=== PATIENT | male | born 1970 | race Hispanic/Latino ===

== ENCOUNTER 2022-03-16 23:01 | Inpatient (IN) | payer MEDICARE ==
[~2022-03-16] VITALS: Ht 167.6 cm; Wt 110.5 kg
[2022-03-16 23:52] LABS: BASOPHILS % (AUTO) 1.1 % (0.0-5.0); EOSINOPHILS % (AUTO) 0.2 % (0.0-8.0); HEMATOCRIT 43.9 % (42-54); LYMPHOCYTES % (AUTO) 8.4 % (21.0-51.0); MEAN CORPUSCULAR HEMOGLOBIN 32.5 pg (27.0-33.0); MEAN CORPUSCULAR HGB CONC 31.4 g/dL (32.0-36.0); MEAN CORPUSCULAR VOLUME 103.3 fL (79-99); MONOCYTES % (AUTO) 7.3 % (3.0-13.0); NEUTROPHILS % (AUTO) 82.7 % (40.0-77.0); NUCLEATED RED BLOOD CELLS 0.5 % (0.0-0.19); PLATELET COUNT (AUTO) 149 K/uL (130-400); RED BLOOD CELL COUNT(AUTO) 4.25 MIL/uL (4.50-6.20); RED CELL DISTRIBUTION WIDTH 18.4 % (11.0-15.5); WHITE BLOOD COUNT (AUTO) 8.7 K/uL (4.8-10.8)
[2022-03-17] MEDS ORDERED: BENZONATATE 100 MG CAPSULE PO ONE
[2022-03-17 00:26] LABS: ALBUMIN 3.7 g/dL (3.5-5.0); BILIRUBIN,TOTAL 1.2 mg/dL (0.2-1.0); POTASSIUM 5.1 mmol/L (3.5-5.1); TOTAL PROTEIN, SERUM 8.2 g/dL (6.0-8.3)
[2022-03-17] MEDS ORDERED: 0.9% NACL 500ML IV.SOLN 500 ML IV SCH (00:30)
[2022-03-17 00:32] LABS: CREATININE 8.9 mg/dL (0.5-1.5)
[2022-03-17] MEDS ORDERED: VANCOMYCIN 1G VIAL IVPB ONE (01:00)
[2022-03-17] MEDS ORDERED: ONDANSETRON 4MG INJ IV PRN (01:00)
[2022-03-17] MEDS ORDERED: ACETAMINOPHEN 325 MG TAB PO PRN (01:00)
[2022-03-17] MEDS ORDERED: HYDRALAZINE 20MG/ML VIAL IV PRN (01:00)
[2022-03-17] MEDS ORDERED: ONDANSETRON 4MG INJ IVP ONE (01:00)
[2022-03-17] MEDS ORDERED: VANCOMYCIN 1G/250ML KIT 250 ML IV ONE (01:05)
[2022-03-17] MEDS: CEFEPIME HCL 2 GM VIAL IVP SCH (01:13)
[2022-03-17 03:05] VITALS: BP 132/77
[2022-03-17] MEDS ORDERED: LEVO75CA5 PO (03:30)
[2022-03-17] MEDS ORDERED: DULA0.75 SQ (03:30)
[2022-03-17] MEDS ORDERED: ASPI-1197 PO (03:30)
[2022-03-17] MEDS ORDERED: METO-408 PO (03:30)
[2022-03-17] MEDS ORDERED: INSU100V12 SQ (03:30)
[2022-03-17] MEDS ORDERED: CLOP75TA32 PO (03:30)
[2022-03-17] MEDS ORDERED: ATOR20TA65 PO (03:30)
[2022-03-17] MEDS ORDERED: LATA7.5D OU (03:30)
[2022-03-17] MEDS ORDERED: PANT40TA54 PO (03:30)
[2022-03-17] MEDS ORDERED: SEVE800T7 PO (03:30)
[2022-03-17] MEDS ORDERED: LOSA25TA41 PO (03:30)
[2022-03-17] MEDS ORDERED: FERR210T PO (03:30)
[2022-03-17] MEDS ORDERED: TIMO1DRO5 OU (03:30)
[2022-03-17] MEDS ORDERED: BENZ200C53 PO (03:30)
[2022-03-17] MEDS ORDERED: GABA-529 PO (03:30)
[2022-03-17] MEDS: GUAIFENESIN-DM 200/20 MG 10 ML PO PRN ×2 (03:31→20:15)
[2022-03-17] MEDS: ACETAMINOPHEN WITH CODEINE 1 TAB TAB PO PRN ×3 (03:34→20:16)
[2022-03-17 04:14] VITALS: BP 157/53
[2022-03-17 05:43] LABS: EOSINOPHILS % (AUTO) 0.2 % (0.0-8.0); LYMPHOCYTES % (AUTO) 11.9 % (21.0-51.0); MEAN CORPUSCULAR HEMOGLOBIN 31.8 pg (27.0-33.0); MEAN CORPUSCULAR HGB CONC 30.7 g/dL (32.0-36.0); MEAN CORPUSCULAR VOLUME 103.7 fL (79-99); MONOCYTES % (AUTO) 8.7 % (3.0-13.0); NEUTROPHILS % (AUTO) 77.7 % (40.0-77.0); NUCLEATED RED BLOOD CELLS 0.6 % (0.0-0.19); PLATELET COUNT (AUTO) 149 K/uL (130-400); RED BLOOD CELL COUNT(AUTO) 4.34 MIL/uL (4.50-6.20); RED CELL DISTRIBUTION WIDTH 18.3 % (11.0-15.5); WHITE BLOOD COUNT (AUTO) 8.3 K/uL (4.8-10.8)
[2022-03-17 05:49] LABS: POTASSIUM 5.2 mmol/L (3.5-5.1)
[2022-03-17 07:53] VITALS: BP 150/87
[2022-03-17] MEDS: DOXYCYCLINE 100MG+NS 250ML 250 ML IV SCH ×2 (08:36→20:15)
[2022-03-17] MEDS ORDERED: DOXYCYCLINE 100MG+NS 250ML IV SCH (09:00)
[2022-03-17 11:52] VITALS: BP 149/86
[2022-03-17 16:00] VITALS: BP 142/85
[2022-03-17 19:45] VITALS: BP 136/86
[2022-03-17] MEDS ORDERED: 0.9% NACL 250ML 250 ML ONE (19:49)
[2022-03-17] MEDS: BENZONATATE 100 MG CAPSULE PO PRN (20:16)
[2022-03-18] VITALS (21 sets, daily range): BP systolic 140–174; BP diastolic 82–114
[2022-03-18] MEDS: CEFEPIME HCL 2 GM VIAL IVP SCH (01:00)
[2022-03-18 09:21] LABS: BASOPHILS % (AUTO) 1.2 % (0.0-5.0); EOSINOPHILS % (AUTO) 4.1 % (0.0-8.0); HEMATOCRIT 45.6 % (42-54); LYMPHOCYTES % (AUTO) 13.1 % (21.0-51.0); MEAN CORPUSCULAR HEMOGLOBIN 32.7 pg (27.0-33.0); MEAN CORPUSCULAR HGB CONC 30.9 g/dL (32.0-36.0); MEAN CORPUSCULAR VOLUME 105.8 fL (79-99); MONOCYTES % (AUTO) 13.7 % (3.0-13.0); NEUTROPHILS % (AUTO) 66.9 % (40.0-77.0); NUCLEATED RED BLOOD CELLS 2.5 % (0.0-0.19); PLATELET COUNT (AUTO) 156 K/uL (130-400); RED BLOOD CELL COUNT(AUTO) 4.31 MIL/uL (4.50-6.20); RED CELL DISTRIBUTION WIDTH 18.8 % (11.0-15.5); WHITE BLOOD COUNT (AUTO) 6.9 K/uL (4.8-10.8)
[2022-03-18] MEDS: DOXYCYCLINE 100MG+NS 250ML 250 ML IV SCH ×2 (09:37→22:17)
[2022-03-18 11:43] LABS: ALBUMIN 3.3 g/dL (3.5-5.0); BILIRUBIN,TOTAL 1.1 mg/dL (0.2-1.0); CREATININE 10.2 mg/dL (0.5-1.5); MAGNESIUM 2.6 mg/dL (1.80-2.40); POTASSIUM 5.8 mmol/L (3.5-5.1); TOTAL PROTEIN, SERUM 7.6 g/dL (6.0-8.3)
[2022-03-18] MEDS: GUAIFENESIN-DM 200/20 MG 10 ML PO PRN (15:15)
[2022-03-18] MEDS: BENZONATATE 100 MG CAPSULE PO PRN (17:26)
[2022-03-18] MEDS ORDERED: VANCOMYCIN 500MG+NS 100ML 100 ML IV ONE (19:00)
[2022-03-18 21:00] LABS: HEPATITIS B SURFACE ANTIGEN Non-Reactive (Negative)
[2022-03-18] MEDS ORDERED: VANCOMYCIN PROTOCOL PER PHARMACY IV SCH (21:00)
[2022-03-18] MEDS ORDERED: LATANOPROST OU SCH (21:00)
[2022-03-18] MEDS ORDERED: NON-FORMULARY MEDICATION 1 EACH (Benzonatate 200 MG) PO SCH (21:00)
[2022-03-18] MEDS ORDERED: 0.9% NACL 250ML 250 ML ONE (21:14)
[2022-03-18] MEDS: LATANOPROST 2.5 ML DROPS OU SCH (22:17)
[2022-03-18] MEDS: ATORVASTATIN 20 MG TABLET PO SCH (22:18)
[2022-03-18] MEDS: METOPROLOL SUCCINATE 25 MG TAB.SR.24H PO SCH (22:18)
[2022-03-18] MEDS: BENZONATATE 100 MG CAPSULE PO SCH (22:18)
[2022-03-18] MEDS: TIMOLOL MALEATE 0.5% 5 ML BOTTLE OU SCH (22:19)
[2022-03-18] MEDS: INSULIN GLARGINE 100 UNITS/ML 10 ML VIAL SQ SCH (22:27)
[2022-03-18] MEDS: ACETAMINOPHEN WITH CODEINE 1 TAB TAB PO PRN (22:29)
[2022-03-19 02:45] VITALS: BP 116/74
[2022-03-19 05:24] LABS: HEMATOCRIT 45.1 % (42-54); MEAN CORPUSCULAR VOLUME 103.2 fL (79-99); NUCLEATED RED BLOOD CELLS 2.3 % (0.0-0.19); PLATELET COUNT (AUTO) 131 K/uL (130-400); RED BLOOD CELL COUNT(AUTO) 4.37 MIL/uL (4.50-6.20); RED CELL DISTRIBUTION WIDTH 18.6 % (11.0-15.5)
[2022-03-19 05:43] LABS: ALBUMIN 2.9 g/dL (3.5-5.0); MAGNESIUM 2.1 mg/dL (1.80-2.40); PHOSPHORUS 5.9 mg/dL (2.5-4.9); POTASSIUM 4.5 mmol/L (3.5-5.1); TOTAL PROTEIN, SERUM 6.7 g/dL (6.0-8.3)
[2022-03-19 05:53] LABS: CREATININE 8.6 mg/dL (0.5-1.5)
[2022-03-19 06:00] LABS: BASOPHILS % (MANUAL) 1 % (0-2); EOSINOPHILS % (MANUAL) 8 % (1-6); LYMPHOCYTES % (MANUAL) 9 % (22-44); MAN.DIFF COMMENT-IMPRESSION MANUAL DIFFERENTIAL; MONOCYTES % (MANUAL) 8 % (2-9); SEGMENTED NEUTROPHILS % 74 % (40-70)
[2022-03-19 06:01] LABS: PLATELET MORPHOLOGY COMMENT ADEQUATE
[2022-03-19] MEDS: LEVOTHYROXINE 75 MCG TABLET PO SCH (06:29)
[2022-03-19] MEDS ORDERED: VANCOMYCIN 500MG+NS 100ML 100 ML IV ONE (06:55)
[2022-03-19 07:35] VITALS: BP 132/73
[2022-03-19] MEDS ORDERED: SEVELAMER HCL 800 MG TABLET PO SCH (08:00)
[2022-03-19] MEDS ORDERED: GABAPENTIN 100 MG CAPSULE PO SCH (09:00)
[2022-03-19] MEDS ORDERED: NON-FORMULARY MEDICATION 1 EACH (Levothyroxine Sodium (Levothyroxine) 75 MCG) PO SCH (09:00)
[2022-03-19] MEDS ORDERED: 0.9% NACL 250ML 250 ML ONE ×2 (09:22→21:17)
[2022-03-19] MEDS: ASPIRIN 81MG CHEW TAB PO SCH (09:25)
[2022-03-19] MEDS: DOXYCYCLINE 100MG+NS 250ML 250 ML IV SCH ×2 (09:25→22:35)
[2022-03-19] MEDS: CLOPIDOGREL 75MG TAB PO SCH (09:25)
[2022-03-19] MEDS: BENZONATATE 100 MG CAPSULE PO SCH ×3 (09:25→22:35)
[2022-03-19] MEDS: Vitamin B Complex/Vit C/Folic Acid PO SCH (09:25)
[2022-03-19] MEDS: TIMOLOL MALEATE 0.5% 5 ML BOTTLE OU SCH ×2 (09:26→22:37)
[2022-03-19 11:40] VITALS: BP 127/69
[2022-03-19] MEDS: GABAPENTIN 100 MG CAPSULE PO SCH (14:29)
[2022-03-19 14:41] LABS: % IRON SATURATION 40.4 % (30-44)
[2022-03-19] MEDS ORDERED: VANCOMYCIN 1.25 GM/250 ML BAG 250 ML IV SCH (15:00)
[2022-03-19 15:05] VITALS: BP 136/79
[2022-03-19] MEDS: SEVELAMER HCL 800 MG TABLET PO SCH (17:00)
[2022-03-19] MEDS: CEFEPIME HCL 1 GM VIAL IVP SCH (17:53)
[2022-03-19] MEDS ORDERED: PHARMACY COMMUNICATION MISC SCH (19:00)
[2022-03-19] MEDS: FERRIC CITRATE 420 MG PO SCH (19:20)
[2022-03-19 20:00] VITALS: BP 138/87
[2022-03-19] MEDS: METOPROLOL SUCCINATE 25 MG TAB.SR.24H PO SCH (22:35)
[2022-03-19] MEDS: ATORVASTATIN 20 MG TABLET PO SCH (22:35)
[2022-03-19] MEDS: LATANOPROST 2.5 ML DROPS OU SCH (22:37)
[2022-03-19] MEDS: INSULIN GLARGINE 100 UNITS/ML 10 ML VIAL SQ SCH (22:47)
[2022-03-20] VITALS (22 sets, daily range): BP systolic 108–164; BP diastolic 60–97
[2022-03-20 05:37] LABS: BASOPHILS % (AUTO) 1.1 % (0.0-5.0); EOSINOPHILS % (AUTO) 7.2 % (0.0-8.0); LYMPHOCYTES % (AUTO) 13.9 % (21.0-51.0); MEAN CORPUSCULAR HEMOGLOBIN 32.1 pg (27.0-33.0); MEAN CORPUSCULAR HGB CONC 31.1 g/dL (32.0-36.0); MONOCYTES % (AUTO) 11.9 % (3.0-13.0); NEUTROPHILS % (AUTO) 65.2 % (40.0-77.0); NUCLEATED RED BLOOD CELLS 2.1 % (0.0-0.19); PLATELET COUNT (AUTO) 136 K/uL (130-400); RED BLOOD CELL COUNT(AUTO) 4.27 MIL/uL (4.50-6.20); RED CELL DISTRIBUTION WIDTH 18.8 % (11.0-15.5); WHITE BLOOD COUNT (AUTO) 7.1 K/uL (4.8-10.8)
[2022-03-20 05:51] LABS: BILIRUBIN,TOTAL 0.9 mg/dL (0.2-1.0); MAGNESIUM 2.4 mg/dL (1.80-2.40); PHOSPHORUS 5.7 mg/dL (2.5-4.9); POTASSIUM 4.3 mmol/L (3.5-5.1); TOTAL PROTEIN, SERUM 6.9 g/dL (6.0-8.3)
[2022-03-20] MEDS: LEVOTHYROXINE 75 MCG TABLET PO SCH (06:01)
[2022-03-20 06:04] LABS: CREATININE 10.1 mg/dL (0.5-1.5)
[2022-03-20] MEDS: SEVELAMER HCL 800 MG TABLET PO SCH ×3 (08:00→16:46)
[2022-03-20] MEDS: Vitamin B Complex/Vit C/Folic Acid PO SCH (12:43)
[2022-03-20] MEDS: ASPIRIN 81MG CHEW TAB PO SCH (12:44)
[2022-03-20] MEDS: DOXYCYCLINE 100MG+NS 250ML 250 ML IV SCH ×2 (12:44→20:42)
[2022-03-20] MEDS: CLOPIDOGREL 75MG TAB PO SCH (12:44)
[2022-03-20] MEDS: BENZONATATE 100 MG CAPSULE PO SCH ×3 (12:44→20:43)
[2022-03-20] MEDS: TIMOLOL MALEATE 0.5% 5 ML BOTTLE OU SCH ×2 (12:47→20:45)
[2022-03-20] MEDS: FERRIC CITRATE 420 MG PO SCH ×3 (12:47→20:52)
[2022-03-20] MEDS: VANCOMYCIN 1.25 GM/250 ML BAG 250 ML IV SCH (14:36)
[2022-03-20] MEDS: GABAPENTIN 100 MG CAPSULE PO SCH (14:53)
[2022-03-20] MEDS: CEFEPIME HCL 1 GM VIAL IVP SCH (16:46)
[2022-03-20] MEDS ORDERED: 0.9% NACL 250ML 250 ML ONE (20:34)
[2022-03-20] MEDS: ATORVASTATIN 20 MG TABLET PO SCH (20:43)
[2022-03-20] MEDS: METOPROLOL SUCCINATE 25 MG TAB.SR.24H PO SCH (20:43)
[2022-03-20] MEDS: LATANOPROST 2.5 ML DROPS OU SCH (20:45)
[2022-03-20] MEDS: INSULIN GLARGINE 100 UNITS/ML 10 ML VIAL SQ SCH (20:51)
[2022-03-21 05:17] LABS: MEAN CORPUSCULAR HEMOGLOBIN 32.3 pg (27.0-33.0); MEAN CORPUSCULAR HGB CONC 31.9 g/dL (32.0-36.0); MEAN CORPUSCULAR VOLUME 101.2 fL (79-99); NUCLEATED RED BLOOD CELLS 0.9 % (0.0-0.19); PLATELET COUNT (AUTO) 113 K/uL (130-400); RED BLOOD CELL COUNT(AUTO) 4.15 MIL/uL (4.50-6.20); RED CELL DISTRIBUTION WIDTH 18.6 % (11.0-15.5); WHITE BLOOD COUNT (AUTO) 6.7 K/uL (4.8-10.8)
[2022-03-21 05:38] LABS: ALBUMIN 2.8 g/dL (3.5-5.0); BILIRUBIN,TOTAL 0.9 mg/dL (0.2-1.0); MAGNESIUM 2.3 mg/dL (1.80-2.40); PHOSPHORUS 4.8 mg/dL (2.5-4.9); POTASSIUM 3.8 mmol/L (3.5-5.1); TOTAL PROTEIN, SERUM 6.4 g/dL (6.0-8.3)
[2022-03-21 05:45] LABS: CREATININE 9.2 mg/dL (0.5-1.5)
[2022-03-21 05:47] LABS: EOSINOPHILS % (MANUAL) 4 % (1-6); LYMPHOCYTES % (MANUAL) 21 % (22-44); MAN.DIFF COMMENT-IMPRESSION MANUAL DIFFERENTIAL; MONOCYTES % (MANUAL) 12 % (2-9); SEGMENTED NEUTROPHILS % 63 % (40-70)
[2022-03-21 05:48] LABS: PLATELET MORPHOLOGY COMMENT SLIGHTLY DECREASED
[2022-03-21] MEDS: LEVOTHYROXINE 75 MCG TABLET PO SCH (05:48)
[2022-03-21 07:40] VITALS: BP 147/85
[2022-03-21] MEDS: DOXYCYCLINE 100MG+NS 250ML 250 ML IV SCH ×2 (09:36→21:53)
[2022-03-21] MEDS: Vitamin B Complex/Vit C/Folic Acid PO SCH (09:37)
[2022-03-21] MEDS: CLOPIDOGREL 75MG TAB PO SCH (09:37)
[2022-03-21] MEDS: LOSARTAN 25 MG TABLET PO SCH (09:37)
[2022-03-21] MEDS: ASPIRIN 81MG CHEW TAB PO SCH (09:37)
[2022-03-21] MEDS: BENZONATATE 100 MG CAPSULE PO SCH ×3 (09:38→21:54)
[2022-03-21] MEDS: TIMOLOL MALEATE 0.5% 5 ML BOTTLE OU SCH ×2 (09:38→21:54)
[2022-03-21] MEDS: FERRIC CITRATE 420 MG PO SCH ×3 (09:38→21:00)
[2022-03-21] MEDS: SEVELAMER HCL 800 MG TABLET PO SCH ×3 (09:38→17:25)
[2022-03-21 11:40] VITALS: BP 138/83
[2022-03-21] MEDS: GABAPENTIN 100 MG CAPSULE PO SCH (14:33)
[2022-03-21 15:40] VITALS: BP 144/84
[2022-03-21] MEDS: CEFEPIME HCL 1 GM VIAL IVP SCH (17:25)
[2022-03-21 20:00] VITALS: BP 132/73
[2022-03-21] MEDS: INSULIN GLARGINE 100 UNITS/ML 10 ML VIAL SQ SCH (21:00)
[2022-03-21] MEDS ORDERED: 0.9% NACL 250ML 250 ML ONE (21:19)
[2022-03-21] MEDS: ATORVASTATIN 20 MG TABLET PO SCH (21:53)
[2022-03-21] MEDS: METOPROLOL SUCCINATE 25 MG TAB.SR.24H PO SCH (21:54)
[2022-03-21] MEDS: LATANOPROST 2.5 ML DROPS OU SCH (21:54)
[2022-03-22] VITALS (20 sets, daily range): BP systolic 137–172; BP diastolic 78–96
[2022-03-22 05:03] LABS: BASOPHILS % (AUTO) 0.7 % (0.0-5.0); EOSINOPHILS % (AUTO) 5.6 % (0.0-8.0); HEMATOCRIT 44.8 % (42-54); LYMPHOCYTES % (AUTO) 16.2 % (21.0-51.0); MEAN CORPUSCULAR HEMOGLOBIN 31.8 pg (27.0-33.0); MEAN CORPUSCULAR HGB CONC 31.3 g/dL (32.0-36.0); MEAN CORPUSCULAR VOLUME 101.8 fL (79-99); MONOCYTES % (AUTO) 8.8 % (3.0-13.0); NUCLEATED RED BLOOD CELLS 0.7 % (0.0-0.19); PLATELET COUNT (AUTO) 113 K/uL (130-400); RED CELL DISTRIBUTION WIDTH 18.6 % (11.0-15.5); WHITE BLOOD COUNT (AUTO) 8.2 K/uL (4.8-10.8)
[2022-03-22 05:15] LABS: PHOSPHORUS 5.4 mg/dL (2.5-4.9); POTASSIUM 4.4 mmol/L (3.5-5.1)
[2022-03-22] MEDS: LEVOTHYROXINE 75 MCG TABLET PO SCH (06:19)
[2022-03-22 06:32] LABS: CREATININE 10.2 mg/dL (0.5-1.5)
[2022-03-22] MEDS: SEVELAMER HCL 800 MG TABLET PO SCH ×3 (08:00→17:00)
[2022-03-22] MEDS ORDERED: 0.9% NACL 250ML 250 ML ONE (09:06)
[2022-03-22] MEDS: DOXYCYCLINE 100MG+NS 250ML 250 ML IV SCH ×2 (10:38→23:03)
[2022-03-22] MEDS: TIMOLOL MALEATE 0.5% 5 ML BOTTLE OU SCH ×2 (10:39→23:04)
[2022-03-22] MEDS: FERRIC CITRATE 420 MG PO SCH ×3 (10:40→21:00)
[2022-03-22] MEDS: CLOPIDOGREL 75MG TAB PO SCH (10:40)
[2022-03-22] MEDS: BENZONATATE 100 MG CAPSULE PO SCH ×3 (10:40→23:03)
[2022-03-22] MEDS: Vitamin B Complex/Vit C/Folic Acid PO SCH (10:40)
[2022-03-22] MEDS: LOSARTAN 25 MG TABLET PO SCH (10:41)
[2022-03-22] MEDS: ASPIRIN 81MG CHEW TAB PO SCH (10:42)
[2022-03-22] MEDS: GABAPENTIN 100 MG CAPSULE PO SCH (14:48)
[2022-03-22] MEDS: CEFEPIME HCL 1 GM VIAL IVP SCH (17:12)
[2022-03-22] MEDS: VANCOMYCIN 1.25 GM/250 ML BAG 250 ML IV SCH (17:12)
[2022-03-22] MEDS ORDERED: ERGOCALCIFEROL (VITAMIN D2) 50,000 UNIT CAPSULE PO SCH (17:30)
[2022-03-22] MEDS: METOPROLOL SUCCINATE 25 MG TAB.SR.24H PO SCH (23:03)
[2022-03-22] MEDS: ATORVASTATIN 20 MG TABLET PO SCH (23:03)
[2022-03-22] MEDS: LATANOPROST 2.5 ML DROPS OU SCH (23:04)
[2022-03-22] MEDS: INSULIN GLARGINE 100 UNITS/ML 10 ML VIAL SQ SCH (23:19)
[2022-03-22] MEDS: ACETAMINOPHEN WITH CODEINE 1 TAB TAB PO PRN (23:24)
[2022-03-23 00:40] VITALS: BP 156/99
[2022-03-23 04:13] VITALS: BP 116/66
[2022-03-23 04:55] LABS: HEMATOCRIT 42.7 % (42-54); MEAN CORPUSCULAR HEMOGLOBIN 32.2 pg (27.0-33.0); MEAN CORPUSCULAR HGB CONC 31.9 g/dL (32.0-36.0); MEAN CORPUSCULAR VOLUME 100.9 fL (79-99); NUCLEATED RED BLOOD CELLS 0.6 % (0.0-0.19); PLATELET COUNT (AUTO) 92 K/uL (130-400); RED BLOOD CELL COUNT(AUTO) 4.23 MIL/uL (4.50-6.20); RED CELL DISTRIBUTION WIDTH 18.5 % (11.0-15.5); WHITE BLOOD COUNT (AUTO) 7.3 K/uL (4.8-10.8)
[2022-03-23 05:10] LABS: POTASSIUM 4.1 mmol/L (3.5-5.1)
[2022-03-23 05:17] LABS: HEMOGLOBIN A1C 6.5 % (4.0-6.0)
[2022-03-23 05:26] LABS: BASOPHILS % (MANUAL) 2 % (0-2); EOSINOPHILS % (MANUAL) 4 % (1-6); LYMPHOCYTES % (MANUAL) 15 % (22-44); MONOCYTES % (MANUAL) 9 % (2-9); SEGMENTED NEUTROPHILS % 70 % (40-70)
[2022-03-23 05:27] LABS: MAN.DIFF COMMENT-IMPRESSION MANUAL DIFFERENTIAL; PLATELET MORPHOLOGY COMMENT DECREASED
[2022-03-23 05:34] LABS: CREATININE 8.5 mg/dL (0.5-1.5)
[2022-03-23] MEDS: LEVOTHYROXINE 75 MCG TABLET PO SCH (06:27)
[2022-03-23 07:40] VITALS: BP 136/86
[2022-03-23] MEDS: FERRIC CITRATE 420 MG PO SCH ×2 (09:00→20:38)
[2022-03-23] MEDS ORDERED: LOSARTAN 50 MG TABLET PO SCH (09:00)
[2022-03-23] MEDS: SEVELAMER HCL 800 MG TABLET PO SCH ×3 (09:57→17:06)
[2022-03-23] MEDS: DOXYCYCLINE 100MG+NS 250ML 250 ML IV SCH (09:57)
[2022-03-23] MEDS: Vitamin B Complex/Vit C/Folic Acid PO SCH (09:57)
[2022-03-23] MEDS: ASPIRIN 81MG CHEW TAB PO SCH (09:58)
[2022-03-23] MEDS: CLOPIDOGREL 75MG TAB PO SCH (09:58)
[2022-03-23] MEDS: ACETAMINOPHEN WITH CODEINE 1 TAB TAB PO PRN ×2 (09:58→20:38)
[2022-03-23] MEDS: BENZONATATE 100 MG CAPSULE PO SCH ×3 (09:59→20:37)
[2022-03-23] MEDS: TIMOLOL MALEATE 0.5% 5 ML BOTTLE OU SCH ×2 (10:01→20:40)
[2022-03-23 11:35] VITALS: BP 146/91
[2022-03-23 15:25] VITALS: BP 151/84
[2022-03-23] MEDS: GABAPENTIN 100 MG CAPSULE PO SCH (17:06)
[2022-03-23] MEDS: CEFEPIME HCL 1 GM VIAL IVP SCH (17:07)
[2022-03-23] MEDS: METOPROLOL SUCCINATE 25 MG TAB.SR.24H PO SCH (20:37)
[2022-03-23] MEDS: GUAIFENESIN-DM 200/20 MG 10 ML PO PRN (20:37)
[2022-03-23] MEDS: ATORVASTATIN 20 MG TABLET PO SCH (20:37)
[2022-03-23] MEDS: LATANOPROST 2.5 ML DROPS OU SCH (20:40)
[2022-03-23] MEDS: INSULIN GLARGINE 100 UNITS/ML 10 ML VIAL SQ SCH (20:40)
== END 2022-03-23 21:33 | DRG 871 ==
LOC: EDH 23:01 → EDHIP 03-17 00:58 → 3DH 03-17 02:47
PROVIDERS: ADMIT Internal Medicine; ATTEND Internal Medicine
PROC: 5A1D70Z Performance of Urinary Filtration, Intermittent, Less than 6 Hours Per Day (ICD-10-PCS; principal; 2022-03-18)
PROC: 5A1D70Z Performance of Urinary Filtration, Intermittent, Less than 6 Hours Per Day (ICD-10-PCS; 2022-03-20)
PROC: 5A1D70Z Performance of Urinary Filtration, Intermittent, Less than 6 Hours Per Day (ICD-10-PCS; 2022-03-22)
DX: A41.9 Sepsis, unspecified organism (principal); N18.6 End stage renal disease; J15.6 Pneumonia due to other Gram-negative bacteria; I13.2 Hypertensive heart and chronic kidney disease with heart failure and with stage 5 chronic kidney disease, or end stage renal disease; L97.419 Non-pressure chronic ulcer of right heel and midfoot with unspecified severity; E87.1 Hypo-osmolality and hyponatremia; L03.115 Cellulitis of right lower limb; Z89.411 Acquired absence of right great toe; Z99.2 Dependence on renal dialysis; Z95.5 Presence of coronary angioplasty implant and graft; D64.9 Anemia, unspecified; E03.9 Hypothyroidism, unspecified; E11.22 Type 2 diabetes mellitus with diabetic chronic kidney disease; E11.51 Type 2 diabetes mellitus with diabetic peripheral angiopathy without gangrene; E11.65 Type 2 diabetes mellitus with hyperglycemia; E66.01 Morbid (severe) obesity due to excess calories; E78.5 Hyperlipidemia, unspecified; I25.10 Atherosclerotic heart disease of native coronary artery without angina pectoris; Z20.822 Contact with and (suspected) exposure to COVID-19; E78.00 Pure hypercholesterolemia, unspecified; Z88.0 Allergy status to penicillin; Z88.8 Allergy status to other drugs, medicaments and biological substances; I50.9 Heart failure, unspecified; Z79.899 Other long term (current) drug therapy; Z83.3 Family history of diabetes mellitus; E11.621 Type 2 diabetes mellitus with foot ulcer; L97.519 Non-pressure chronic ulcer of other part of right foot with unspecified severity; G47.33 Obstructive sleep apnea (adult) (pediatric); B95.2 Enterococcus as the cause of diseases classified elsewhere; E11.40 Type 2 diabetes mellitus with diabetic neuropathy, unspecified; B95.61 Methicillin susceptible Staphylococcus aureus infection as the cause of diseases classified elsewhere; Z68.39 Body mass index [BMI] 39.0-39.9, adult
CPT/HCPCS: 36415; 71045; 71250; 73630; 73718; 80048; 80053; 80202; 82306; 82948; 83036; 83540; 83550; 83605; 83735; 84100; 84145; 85025; 85651; 86140; 86704; 86706; 87040; 87070; 87071; 87076; 87077; 87088; 87186; 87205; 87340; 87635; 87804; 90935; C9803; G0378; J0360; J0692; J2405; J3370; J3490; J7050

== ENCOUNTER → 2022-04-30 | Outpatient (CLI) | payer MEDICARE ==
[~2022-04-30] MED LIST: ASPI-1197 PO; ATOR20TA65 PO; BENZ200C53 PO; CLOP75TA32 PO; DULA0.75 SQ; FERR210T PO; GABA-529 PO; INSU100V12 SQ; LATA7.5D OU; LEVO75CA5 PO; LOSA25TA41 PO; METO-408 PO; PANT40TA54 PO; SEVE800T7 PO; TIMO1DRO5 OU
== END | disposition home or self-care (01) ==
LOC: SHCH 09:11
PROVIDERS: ATTEND Internal Medicine Cardiovascular Disease
DX: I42.5 Other restrictive cardiomyopathy (principal); I08.1 Rheumatic disorders of both mitral and tricuspid valves; I73.9 Peripheral vascular disease, unspecified
CPT/HCPCS: 93306

== ENCOUNTER 2023-04-03 12:26 | Emergency (ER) | payer MEDICARE ==
[~2023-04-03] VITALS: Ht 170.2 cm; Wt 104.3 kg
[~2023-04-03 12:26] MED LIST changes: +AZIT250T PO; +BENZ-39 PO; -TIMO1DRO5 OU; +TIMO1DRO9 OU
[2023-04-03 14:43] LABS: BASOPHILS % (AUTO) 0.4 % (0.0-5.0); EOSINOPHILS % (AUTO) 2.7 % (0.0-8.0); HEMATOCRIT 38.7 % (42-54); LYMPHOCYTES % (AUTO) 9.8 % (21.0-51.0); MEAN CORPUSCULAR HEMOGLOBIN 33.1 pg (27.0-33.0); MEAN CORPUSCULAR HGB CONC 33.1 g/dL (32.0-36.0); MONOCYTES % (AUTO) 7.4 % (3.0-13.0); NEUTROPHILS % (AUTO) 79.4 % (40.0-77.0); PLATELET COUNT (AUTO) 203 K/uL (130-400); RED BLOOD CELL COUNT(AUTO) 3.87 MIL/uL (4.50-6.20); RED CELL DISTRIBUTION WIDTH 12.6 % (11.0-15.5); WHITE BLOOD COUNT (AUTO) 11.1 K/uL (4.8-10.8)
[2023-04-03 14:52] LABS: INR 0.96 (0.85-1.15); PROTHROMBIN TIME 11.2 SEC (9.6-11.6)
[2023-04-03 14:53] LABS: PARTIAL THROMBOPLASTIN TIME 31.9 SEC (26.3-35.5)
[2023-04-03 15:11] VITALS: BP 158/85
[2023-04-03 15:14] LABS: ALBUMIN 3.2 g/dL (3.5-5.0); POTASSIUM 4.9 mmol/L (3.5-5.1); TOTAL PROTEIN, SERUM 8.2 g/dL (6.0-8.3)
[2023-04-03 15:16] LABS: CREATININE 7.9 mg/dL (0.5-1.5)
[2023-04-03 16:07] LABS: ERYTHROCYTE SEDIMENTATION RATE 71 MM/HR (0-20)
== END 2023-04-03 16:39 | disposition home or self-care (01) ==
LOC: EDH 12:26
DX: L89.620 Pressure ulcer of left heel, unstageable (principal); I12.0 Hypertensive chronic kidney disease with stage 5 chronic kidney disease or end stage renal disease; E11.22 Type 2 diabetes mellitus with diabetic chronic kidney disease; N18.6 End stage renal disease; E78.00 Pure hypercholesterolemia, unspecified; R22.41 Localized swelling, mass and lump, right lower limb; E03.9 Hypothyroidism, unspecified; Z99.2 Dependence on renal dialysis
CPT/HCPCS: 36415; 73630; 80053; 82550; 83605; 84145; 84484; 85025; 85610; 85651; 85730; 87040; 93971

== ENCOUNTER → 2024-04-15 | Outpatient (CLI) | payer OTHER | END | disposition home or self-care (01) | LOC: SHCH 11:50 | PROVIDERS: ATTEND Internal Medicine Cardiovascular Disease | DX: I65.23 Occlusion and stenosis of bilateral carotid arteries (principal) | CPT/HCPCS: 93880 ==